=== PATIENT | female | born 1965 | race Caucasian/White ===

== ENCOUNTER 2020-03-24 10:13 | Outpatient (REF) | payer OTHER, SELFPAY | END 2020-03-24 10:14 | disposition home or self-care (01) | LOC: HO.LAB 10:13 | PROVIDERS: Visit Provider Internal Medicine | DX: Z20.828 Contact with and (suspected) exposure to other viral communicable diseases (principal) | CPT/HCPCS: C9803; U0003 ==

== ENCOUNTER 2024-07-09 13:59 | Outpatient (AMB) | payer OTHER, SELFPAY ==
--- NOTE | 2024-07-09 14:18 | A.OFFVIS_ITS ---
Vital Signs 07/09/24 14:19 Height 5 ft 4 in Weight 186 lb BMI 31.9 BP 116/76 Blood Pressure Location Lt brachial Position Sitting Pulse 107 H Pulse Source Pulse Oximeter Pulse Oximetry (%) 95 Oxygen Delivery Method Room Air Intake Visit Reasons: E-COUNTY AGENT: Dyspnea needs sleep study Intake Note: External New Patient- Dyspnea. Patient would also like us to send note to Division Service Manager Dr. Toledo Allergies adhesive tape Allergy (Mild, Verified 07/09/24 14:23) Hives naproxen Allergy (Mild, Verified 07/09/24 14:34) Diarrhea shellfish derived Allergy (Mild, Verified 07/09/24 14:34) Unknown Sulfa (Sulfonamide Antibiotics) Allergy (Mild, Verified 07/09/24 14:23) hives mold Allergy (Unknown, Verified 07/09/24 14:34) Unknown nut - unspecified Allergy (Unknown, Verified 07/09/24 14:34) Unknown HPI Comments Details: 58 year old female presents to us for sleep evaluation per PCP Betty Lezama at [facility]. She had a visit with her stars analytical lead Nayeli Toledo, and was told she has an enlarged Aorta. She had a complete Cardiology workup EKG, Echo, Holter monitor and it was within parameters. She had calcium score because of weight issues and her condition was discovered. Her father had a AK at 45. Her boyfriend says she snores loudly and she wakes up in the middle of the night and then watches tv throughout the night. Bedtime is 9pm, she wakes up at 4:30am, and is not able to fall asleep again. She has asthma, and allergies and her pulse is high at 107 today. She is followed by Rheumatology Dr. Jackson at [facility] for RA like swelling of small joints. Her memory and mood are normal. Her diet is poor, as she eats alot of fast food. She walks 3x a week for 20min intervals, hikes once a month 3-4 miles, and drinks plenty of water. She is not a smoker, and drinks 2 glasses of wine a night. [facility] Medical History COVID-19 Family history of premature coronary heart disease Family history of malignant melanoma Prediabetes GERD (gastroesophageal reflux disease) Asthma Allergic rhinitis Benign essential hypertension Obesity Goiter Review of Systems Const All systems reviewed & are unremarkable except as noted in HPI and below Physical Exam Vital Signs: Last Vital Signs Pulse 107 H 07/09/24 14:19 BP 116/76 07/09/24 14:19 Pulse Ox 95 07/09/24 14:19 Oxygen Delivery Method Room Air 07/09/24 14:19 BMI result Body Mass Index 31.9 Const General: cooperative, comfortable and no acute distress Nutritional Appearance: obese Orientation/consciousness: patient oriented x3 Eyes Pupils: Equal, round and reactive pupils present Neck Neck: Yes full ROM and Yes supple Resp Effort & Inspection: normal respiratory effort and able to speak in complete sentences Neuro General: patient oriented x3 and moves all extremities Cranial nerves: Yes CN's II-XII intact bilaterally, Yes Facial sensation intact/muscles of mastication intact, Yes Equal, round and reactive pupils present, Yes Normal accommodation reflex present, Yes Bilaterally intact EOM present, Yes Normal facial strength present, Yes Midline tongue present, Yes Ability to bilaterally rotate head present and Yes Ability to bilaterally elevate shoulders present Gait exam (Neuro): Normal gait present Motor exam (neuro): 5/5 motor strength present throughout and Normal motor muscle tone present throughout Deep tendon reflexes (DTR's): Right triceps reflex intensity grade: 2+, Left triceps reflex intensity grade: 2+, Rt Biceps (C5, C6): 2+, Left biceps reflex intensity grade: 2+, Left brachioradialis reflex intensity grade: 2+, Right patellar reflex intensity grade: 2+ and Left patellar reflex intensity grade: 2+ Results Reviewed Results Reviewed: Request Records from Nayeli Ruiz Division Service Manager Assessment & Plan Assessment & Plan (1) Fatigue due to sleep pattern disturbance: Code(s): R53.83 - Other fatigue; G47.9 - Sleep disorder, unspecified Category: Medical Plan Fatigue Labs to r/o deficiencies HST to evaluate for sleep apnea F/U in 3 months Orders: Orders Comprehensive Met. Panel Today G47.9 - Sleep disorder, unspecified, R53.83 - Other fatigue Ferritin Today G47.9 - Sleep disorder, unspecified, R53.83 - Other fatigue Homocysteine Today G47.9 - Sleep disorder, unspecified, R53.83 - Other fatigue Methylmalonic Acid Today G47.9 - Sleep disorder, unspecified, R53.83 - Other fatigue Vitamin B12 and Folate Today G47.9 - Sleep disorder, unspecified, R53.83 - Other fatigue RT home sleep study Today G47.19 - Other hypersomnia Complete Blood Count no Diff Today G47.9 - Sleep disorder, unspecified, R53.83 - Other fatigue Hemoglobin A1c Today G47.9 - Sleep disorder, unspecified, R53.83 - Other fatigue IRON PROFILE Today G47.9 - Sleep disorder, unspecified, R53.83 - Other fatigue TSH reflex Free T4 Today F09 - Unspecified mental disorder due to known physiological condition Vitamin D 25-OH Total Today G47.9 - Sleep disorder, unspecified, R53.83 - Other fatigue Patient Instructions: Sleep Hygiene Sleep in a dark and cool room, temperatures should be 68 or below. No devices in bed, may read a book. May diffuse essential oils and play soft calming music or do gentle yoga before bedtime. Coding Level of Care Code New Pt Level 4 (31944) Diagnoses Fatigue due to sleep pattern disturbance R53.83; G47.9 Time Spent (min) 30 Comment Evaluation Sleep Questionnaire Difficulty falling asleep: No Difficulty staying asleep?: Yes Number of arousals: 2-4 Snoring: Yes Witnessed apneas: No Gasping arousals: No Nocturia: No GERD: Yes Vivid dreams: No Acting out dreams: No Abnormal behavior in sleep: Yes (Sleep talking) Abnormal movements in sleep: No Morning headaches: No Excessive daytime sleepiness: Yes Daytime naps: No Restless legs: No Hallucinations: No Sleep paralysis: No Drop attacks: No Sleep Study: No CPAP: No
[2024-07-09 14:19] VITALS: BP 116/76; PULSE 107; O2SAT 95; BMI 31.9
== END 2024-07-09 15:02 | disposition home or self-care (01) ==
PROVIDERS: PCP Family Medicine; Visit Provider Physician Assistant Medical
DX: R53.83 Other fatigue (principal); G47.9 Sleep disorder, unspecified
CPT/HCPCS: 99204

== ENCOUNTER → 2024-07-09 13:59 | Outpatient (BNVA) | payer OTHER, SELFPAY | PROVIDERS: PCP Family Medicine; Visit Provider Physician Assistant Medical | DX: R53.83 Other fatigue (principal); G47.9 Sleep disorder, unspecified | CPT/HCPCS: 99202 ==

== ENCOUNTER → 2024-09-10 11:04 | Outpatient (REF) | payer OTHER, SELFPAY | LOC: HO.SL 11:04 | PROVIDERS: PCP Family Medicine; Visit Provider Physician Assistant Medical | DX: G47.19 Other hypersomnia (principal) | CPT/HCPCS: 95806 ==

== ENCOUNTER → 2024-09-10 11:13 | Outpatient (BNV) | payer OTHER, SELFPAY | PROVIDERS: PCP Family Medicine; Visit Provider Psychiatry & Neurology Neurology | DX: G47.33 Obstructive sleep apnea (adult) (pediatric) (principal) | CPT/HCPCS: 95806 ==

== ENCOUNTER 2024-10-06 09:32 | Outpatient (AMB) | payer OTHER, SELFPAY ==
--- NOTE | 2024-10-06 09:32 | MHC.OFFVIS ---
Vital Signs 10/06/24 09:33 Height 5 ft 4 in Weight 189 lb BMI 32.4 BP 122/88 Blood Pressure Location Rt brachial Position Sitting Pulse 104 H Pulse Source Pulse Oximeter Pulse Oximetry (%) 98 Oxygen Delivery Method Room Air Intake Visit Reasons: 3 mo follow up Intake Note: Patient presents follow up Sleep. Labs/HST in chart.(AHI-8,Supine AHI-19, BINTA-86%. Trial APAP 5-20CM water) Allergies adhesive tape Allergy (Mild, Verified 10/06/24 09:35) Hives naproxen Allergy (Mild, Verified 10/06/24 09:35) Diarrhea shellfish derived Allergy (Mild, Verified 10/06/24 09:35) Unknown Sulfa (Sulfonamide Antibiotics) Allergy (Mild, Verified 10/06/24 09:35) hives mold Allergy (Unknown, Verified 10/06/24 09:35) Unknown nut - unspecified Allergy (Unknown, Verified 10/06/24 09:35) Unknown HPI Comments Details: 59 year old female presents to us for sleep evaluation per PCP Betty Lezama at [facility]. 09/17/2024 HST is c/w mild derek AHI is 8 and oxygen binta to 86% with snoring. Zyzol, for allergies and Breo for asthma today she has an URI. She continues to be fatigued chronically and seems very anxious today. She had a visit with her plastic and reconstructive surgeon Nayeli Toledo, she was dx with an enlarged aorta, then she had a complete Cardiology workup, with EKG, Echo, and 2x Holter monitor, she had failed her PFTs at [facility] and is being followed by Pulmonology. We discussed pathophysiology of obesity, mallampti scores airway obstruction, GERD and relevance to DEREK. Her boyfriend says she snores loudly and she wakes up in the middle of the night, then watches tv throughout the night if she can not fall asleep, though she is sleeping better now denies hot flashes and mood irritability, less menopausal symptoms. Has been to weight loss management at [facility], plans to start wegovy or zepboud, undecided. Her memory is okay and mood is stable. Her diet is poor, as she eats a lot of fast food. Is not able to get into the gym at the moment. 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 Declines psychosocial support today. Her pulse is higher at the end of this visit (106). Patient education provided re: using cpap and cardio-protective, cognitive benefits of therapy vs. oral appliance use. [facility] Medical History COVID-19 Family history of premature coronary heart disease Family history of malignant melanoma Prediabetes GERD (gastroesophageal reflux disease) Asthma Allergic rhinitis Benign essential hypertension Obesity Goiter Physical Exam Vital Signs: Last Vital Signs Pulse 104 H 10/06/24 09:33 BP 122/88 10/06/24 09:33 Pulse Ox 98 10/06/24 09:33 Oxygen Delivery Method Room Air 10/06/24 09:33 BMI result Body Mass Index 32.4 Const General: cooperative, comfortable and no acute distress Nutritional Appearance: overweight Orientation/consciousness: patient oriented x3 HEENT Face and sinus: Yes face symmetric Teeth and gingiva: other (Mallampti score of 4.) Eyes Pupils: Equal, round and reactive pupils present Neck Neck: Yes full ROM Resp Effort & Inspection: normal respiratory effort, able to speak in complete sentences and Actively coughing Neuro General: patient oriented x3 and moves all extremities Cranial nerves: Yes Facial sensation intact/muscles of mastication intact, Yes Equal, round and reactive pupils present, Yes Normal accommodation reflex present, Yes Normal facial strength present, Yes Midline tongue present, Yes Ability to bilaterally rotate head present and Yes Ability to bilaterally elevate shoulders present Cognition (Neuro): normal cognition Gait exam (Neuro): Normal gait present Psych Appearance: grossly normal Affect: Anxious affect present Attitude: cooperative Thought content: Normal thought content present Results Reviewed Results Reviewed: 09/17/2024 HST c/w mild derek, AHI is 8/hr and oxygen nadirs to 86%, with snoring 25% of study. Assessment & Plan Assessment & Plan (1) DEREK (obstructive sleep apnea): Code(s): G47.33 - Obstructive sleep apnea (adult) (pediatric) Category: Medical (2) Loud snoring: Code(s): R06.83 - Snoring Category: Medical (3) Fatigue due to sleep pattern disturbance: Code(s): R53.83 - Other fatigue; G47.9 - Sleep disorder, unspecified Category: Medical Plan DEREK AHI is 8 and Oxygen Binta to 86%, with snoring. Start Cpap therapy at [id number] and f/u for compliance. Will reviewed labs patient, start daily vit d, b12 is normal, mma is low and homocysteine is high, folate normal. (inflammation) Monitor and Decrease alcohol use, increase walking and daily exercise 30 min a day, and with water intake. F/U in 3 months for compliance. Patient Instructions: Sleep Hygiene provided: set a scheduled bedtime and wake time to help regulate the circadian rhythm and balance the release of pituitary hormones. Sleep in a dark room, temperatures below 68 degrees, and no devices n bed. Limit caffeinated products 6 hours prior to bed, and limit fluids 2-4 hours prior to bed. Gentle night yoga, diffusing essential oils, and playing soft music can be relaxing. Wash mask daily, change filters, change hoses and fill reservoir with water as needed. F/U in 3 months for compliance >4 hours a night at a minimum and >70% for the 90 days period. Alcohol use taper use and ask for help if you need a therpist please reach out to [facility] or behavioral health at [facility]. Coding Level of Care Code Est Pt Level 4 (58904) Diagnoses DEREK (obstructive sleep apnea) G47.33 Loud snoring R06.83 Fatigue due to sleep pattern disturbance R53.83; G47.9 Time Spent (min) 30 Comment start cpap therapy
[2024-10-06 09:33] VITALS: BP 122/88; PULSE 104; O2SAT 98; BMI 32.4
== END 2024-10-06 10:24 | disposition home or self-care (01) ==
LOC: HO.HSMS 09:32
PROVIDERS: PCP Family Medicine; Visit Provider Physician Assistant Medical
DX: G47.33 Obstructive sleep apnea (adult) (pediatric) (principal); R06.83 Snoring; R53.83 Other fatigue; G47.9 Sleep disorder, unspecified
CPT/HCPCS: 99214

== ENCOUNTER → 2024-10-06 09:32 | Outpatient (BNVA) | payer OTHER, SELFPAY | PROVIDERS: PCP Family Medicine; Visit Provider Physician Assistant Medical | DX: G47.33 Obstructive sleep apnea (adult) (pediatric) (principal); G47.9 Sleep disorder, unspecified; R06.83 Snoring; R53.83 Other fatigue | CPT/HCPCS: 99212 ==

== ENCOUNTER 2025-01-26 10:28 | Outpatient (AMB) | payer OTHER, SELFPAY ==
[2025-01-26 10:32] VITALS: BP 124/86; PULSE 103; O2SAT 96; BMI 31.7
--- NOTE | 2025-01-26 10:32 | MHC.OFFVIS ---
Vital Signs 01/26/25 10:32 Height 5 ft 4 in Weight 184 lb 8 oz BMI 31.7 BP 124/86 Blood Pressure Location Rt brachial Position Sitting Pulse 103 H Pulse Source Pulse Oximeter Pulse Oximetry (%) 96 Oxygen Delivery Method Room Air Intake Visit Reasons: 3 mo follow up Intake Note: Patient presents follow up DEREK. Compliance in chart(06/05days, >=4hrs-0%, Average Usage-10min, Med Pressure-4.0, Med Leaks-10.8, AHI-0.0). Patient stated she can not do CPAP. Patient looking to see about zepbound. Accompanied by: Self / Same As Patient Allergies adhesive tape Allergy (Mild, Verified 01/26/25 10:36) Hives naproxen Allergy (Mild, Verified 01/26/25 10:36) Diarrhea shellfish derived Allergy (Mild, Verified 01/26/25 10:36) Unknown Sulfa (Sulfonamide Antibiotics) Allergy (Mild, Verified 01/26/25 10:36) hives mold Allergy (Unknown, Verified 01/26/25 10:36) Unknown nut - unspecified Allergy (Unknown, Verified 01/26/25 10:36) Unknown HPI Comments Details: 59 year old female presents for a f/u of DEREK. 09/17/2024 HST is c/w mild derek AHI is 8 and oxygen binta to 86% with snoring. She has asthma and allergies takes Zyzol, for allergies and Breo for asthma today she has an URI and will f/u with financial advisor trainee and mechanical research engineer at an upcoming appt. She continues to be fatigued chronically and feels panicked when she puts the mask on. she feels clautrophobic and pulls her mask off as she is unable to tolerate the mask and her panic attacks worsen. She had a visit with her insole coverer Nayeli Toledo, she was dx with an enlarged aorta, then she had a complete cardiology workup, with EKG, Echo, and 2x Holter monitor, she had failed her PFTs at [facility]. We discussed pathophysiology of obesity, mallampti scores airway obstruction, GERD and relevance to DEREK. She would like to start zepbound. Her boyfriend says she snores loudly and she wakes up in the middle of the night, then watches tv throughout the night. She has vasomotor symptoms and is uncomfortable at night. Has been to weight loss management with Chhaya Hossein. Her memory is okay and mood is stable. Her diet is poor, as she eats a lot of fast food. Is not able to get into the gym at the moment. 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 Declines psychosocial support today. Her pulse is higher at the end of this visit (106). Patient education provided re: using cpap as it is the gold standard approach to treating sleep apena with positive airway pressure and the benefits of cognitive improvement. Explained how an oral appliance could also be beneficial, however cpap use is the preferred treatment of choice. [facility] Medical History COVID-19 Family history of premature coronary heart disease Family history of malignant melanoma Prediabetes GERD (gastroesophageal reflux disease) Asthma Allergic rhinitis Benign essential hypertension Obesity Goiter Physical Exam Vital Signs: Last Vital Signs Pulse 103 H 01/26/25 10:32 BP 124/86 01/26/25 10:32 Pulse Ox 96 01/26/25 10:32 Oxygen Delivery Method Room Air 01/26/25 10:32 BMI result Body Mass Index 31.7 Const General: cooperative, comfortable and no acute distress Nutritional Appearance: overweight Orientation/consciousness: patient oriented x3 HEENT Face and sinus: Yes face symmetric Teeth and gingiva: other (Mallampti score of 4.) Eyes Pupils: Equal, round and reactive pupils present Neck Neck: Yes full ROM Resp Effort & Inspection: normal respiratory effort, able to speak in complete sentences and Actively coughing Neuro General: patient oriented x3 and moves all extremities Cranial nerves: Yes Facial sensation intact/muscles of mastication intact, Yes Equal, round and reactive pupils present, Yes Normal accommodation reflex present, Yes Normal facial strength present, Yes Midline tongue present, Yes Ability to bilaterally rotate head present and Yes Ability to bilaterally elevate shoulders present Cognition (Neuro): normal cognition Gait exam (Neuro): Normal gait present Psych Appearance: grossly normal Affect: Anxious affect present Attitude: cooperative Thought content: Normal thought content present Assessment & Plan Assessment & Plan (1) DEREK (obstructive sleep apnea): Code(s): G47.33 - Obstructive sleep apnea (adult) (pediatric) Category: Medical (2) Loud snoring: Code(s): R06.83 - Snoring Category: Medical (3) Fatigue due to sleep pattern disturbance: Code(s): R53.83 - Other fatigue; G47.9 - Sleep disorder, unspecified Category: Medical Plan DEREK AHI is 8 and Oxygen Binta to 86%, with snoring. Start Cpap therapy at [id number] and f/u for compliance. Pt. declines use of cpap today, she is claustrophobic, asthmatic, and unable to tolerate the mask. Fatigue reviewed labs patient, start daily vit d, b12 is normal, mma is low and homocysteine is high, folate normal. (inflammation) Monitor and Decrease alcohol use, increase walking and daily exercise 30 min a day, increase water intake. ENT referral for polyps. [facility] referral Sleep dentistry referral for oral appliance evaluation. F/U in 3 months for compliance. Orders: Referrals Ear/Nose/Throat Referral G47.30 - Sleep apnea, unspecified Medical Weight Management Referral E66.01 - Morbid (severe) obesity due to excess calories Medications: Refilled cholecalciferol (vitamin D3) take one tablet daily at bedtime. 10 mcg PO DAILY 90 tabs 3RF 90 days Patient Instructions: Sleep Hygiene provided: set a scheduled bedtime and wake time to help regulate the circadian rhythm and balance the release of pituitary hormones. Sleep in a dark room, temperatures below 68 degrees, and no devices n bed. Limit caffeinated products 6 hours prior to bed, and limit fluids 2-4 hours prior to bed. Gentle night yoga, diffusing essential oils, and playing soft music can be relaxing. Coding Level of Care Code Est Pt Level 4 (40638) Diagnoses DEREK (obstructive sleep apnea) G47.33 Loud snoring R06.83 Fatigue due to sleep pattern disturbance R53.83; G47.9
--- OUTSIDE RECORDS SUMMARY | 2025-01-26 12:44 | XMS_ITS | Encounter Summary ---
Author Organization [facility] Address [address] [place] [address] Phone Care Team Providers Care Pathology Assistant Name Role Phone Da Licea MD Primary Care Prov ider Da Licea MD Primary Care Prov ider Encounter Details Date Type Department Care Team (Late st Contact Info) Description 07/23/2018 Procedure Pass [facility] Endoscopy Admitting Dept Virtual Department [address] [place] [id number] Social History Tobacco Use Types Packs/Day Years Used Date Smoking Tobacco: Never Smokeless Tobacco: Never Alcohol Use Standard Drinks/Week Comments Yes 7 (1 standard drink = 0.6 oz pur e alcohol) weekly Comments No Sex and Gender Information Value Date Recorded Sex Assigned at Female 11/23/2022 12:29 PM EDT Legal Sex Female 6:38 AM EST Gender Identity Female 11/23/2022 12:29 PM EDT Sexual Orientation Not on file documented as of this encounter Plan of Treatment Upcoming Encounters Date Type Department Care Team (Late st Contact Info) Description 02/09/2025 11:20 AM EDT Office Visit [facility] [address] [place] [address] 3rd Floor, [address] [place] [address] Jair Mercer MD [address] [facility] [facility], [address] [place] [address] 02/18/2025 10:30 AM EDT Nutrition [facility] General Surgical Care [address] [place] [address] Bri Wheeler LDN [address] [place] [address] 03/24/2025 10:15 AM EST Office Visit [facility] General Surgical Care [address] [place] [address] Chhaya Espana, INVASIVE CARDIOVASCULAR TECHNOLOGIST [address], 2nd [place] [address] 03/30/2025 3:00 PM EST Office Visit [facility] Pulmonary, Allergy and Critical Care Medicine [address] [place] [address] Luis Moore MD [address] [place] [address] 03/31/2025 2:00 PM EST Office Visit [facility] [address] [facility] 3rd Floor, [address] [place] [address] Jeyson Fagan MD [address], [address] [place] [address] 06/09/2025 9:10 AM EST Office Visit [facility] Rheumatology [address] [place] [address] Nury Jackson MD, MPH [address], [address] [place] [address] documented as of this encounter Visit Diagnoses Not on filedocumented in this encounter Additional Health Concerns Infection Onset Date Last Indicated Resolved Time CoV-Risk 04/12/2020 04/12/2020 04/26/2020 2:06 AM EST CoV-Risk 03/06/2022 03/06/2022 03/17/2022 1:24 AM EST documented as of this encounter Care Teams Pathology Assistant Relationship Specialty Start Date End Date Da Licea MD [email or web address] PCP - General Family Medicine 04/20/17 4 Da Licea MD [address] [place] [id number] [email or web address] PCP - General Family Medicine 05/22/23 documented as of this encounter Additional Source Comments The information contained in this document represents components of the legal health record. It is not the complete legal health record.[facility]
--- OUTSIDE RECORDS SUMMARY | 2025-01-26 12:44 | XMS_ITS | Encounter Summary ---
Author Organization [facility] Address [address] [place] [address] Phone Care Team Providers Care Project Safety Manager Name Role Phone Da Licea MD Primary Care Prov ider Da Licea MD Primary Care Prov ider Encounter Details Date Type Department Care Team (Late st Contact Info) Description 02/11/2020 Procedure Pass [facility], [address] [address] Social History Tobacco Use Types Packs/Day Years Used Date Smoking Tobacco: Never Smokeless Tobacco: Never Alcohol Use Standard Drinks/Week Comments Yes 0 (1 standard drink = 0.6 oz pur e alcohol) 2-3 daily Comments No Sex and Gender Information Value Date Recorded Sex Assigned at Female 11/23/2022 12:29 PM EDT Legal Sex Female 6:38 AM EST Gender Identity Female 11/23/2022 12:29 PM EDT Sexual Orientation Not on file documented as of this encounter Plan of Treatment Upcoming Encounters Date Type Department Care Team (Late st Contact Info) Description 02/09/2025 11:20 AM EDT Office Visit [facility] [address] [place] [address] 3rd Floor, [address] [place] [address] Jair Mercer MD [address] [facility], [address] [place] [phone] 02/18/2025 10:30 AM EDT Nutrition [facility] General Surgical Care [address] [place] [address] Bri Wheeler LDN [address] [place] [address] 03/24/2025 10:15 AM EST Office Visit [facility] General Surgical Care [address] [place] [address] Chhaya Espana, MANAGER ELECTRICAL [address] [facility], 2nd [place] [address] 03/30/2025 3:00 PM EST Office Visit [facility] Pulmonary, Allergy and Critical Care Medicine [address] [place] [address] Luis Moore MD [address] [place] [address] 03/31/2025 2:00 PM EST Office Visit [facility] [address] [facility] 3rd Floor, [address] [place] [address] Jeyson Fagan MD [address] [facility], [facility] [address] [place] [address] 06/09/2025 9:10 AM EST Office Visit [facility] Rheumatology [address] [place] [address] Nury Jackson MD, MPH [address] [facility], [address] [place] [address] documented as of this encounter Visit Diagnoses Not on filedocumented in this encounter Additional Health Concerns Infection Onset Date Last Indicated Resolved Time CoV-Risk 04/12/2020 04/12/2020 04/26/2020 2:06 AM EST CoV-Risk 03/06/2022 03/06/202203/1703/17/2022 1:24 AM EST documented as of this encounter Care Teams Project Safety Manager Relationship Specialty Start Date End Date Da Licea MD PCP - General Family Medicine 04/20/17 4 Da Licea MD [address] [place] [phone] [email or web address] PCP - General Family Medicine 05/22/23 documented as of this encounter Additional Source Comments The information contained in this document represents components of the legal health record. It is not the complete legal health record.[facility]
--- OUTSIDE RECORDS SUMMARY | 2025-01-26 12:44 | XMS_ITS | Encounter Summary ---
Author Organization [facility] Address [address] [place] [address] Phone Care Team Providers Care Wastewater Operator Name Role Phone Da Licea MD Primary Care Prov ider Da Licea MD Primary Care Prov ider Encounter Details Date Type Department Care Team (Late st Contact Info) Description 04/02/2020 Transcribe Orders [facility] [address] [place] [phone] Angela Ruelas MD [address] [place], [place] [phone] [email or web address] Stomach ache (Primary Dx) Social History Tobacco Use Types Packs/Day Years [...] Description 02/09/2025 11:20 AM EDT Office Visit [facility] [address] [place] [address] 3rd Floor, [address] [place], [place] [id number] Jair Mercer MD [address] [facility], [address] [place] [address] 02/18/2025 10:30 AM EDT Nutrition [facility] General Surgical Care [address] [place] [address] Bri Wheeler LDN [address] [place] [place] [address] 03/24/2025 10:15 AM EST Office Visit [facility] General Surgical Care [address] [place] [address] Chhaya Espana, WHEEL CUTTER [address] [facility], 2nd [place] [address] 03/30/2025 3:00 PM EST Office Visit [facility] Pulmonary, Allergy and Critical Care Medicine 10 [place] [address] Luis Moore MD 30 [place] [address] 03/31/2025 2:00 PM EST Office Visit [facility] [address] [facility] 3rd Floor, [address] [place] [address] Jeyson Fagan MD 22 [facility], [facility] 301 [place] [address] 06/09/2025 9:10 AM EST Office Visit [facility] Rheumatology [address] [place] [address] Nury Jackson MD, MPH [address] [facility], [facility] 203 [place] [address] documented as of this encounter Results * CBC and differential (04/02/2020 11:49 AM EST) WBC 9.61 4.00 - 11.00 K/uL [facility] Comment:Note Reference Range updates to all CBC and Differential results. RBC 4.69 3.72 - 5.30 M/uL [facility] HGB 14.1 10.6 - 15.5 g/dL [facility] Comment:Note updated Referen ce Ranges for all CBC and Differential results. HCT 42.6 32.0 - 45.0 % [facility] PLT 276 140 - 430 K/uL [facility] MCV 90.8 78.0 - 97.0 fL [facility] MCH 30.1 25.0 - 33.0 pg [facility] MCHC 33.1 32.0 - 36.0 g/dL [facility] RDW 12.2 11.0 - 16.0 % [facility] MPV 12.2 8.4 - 12.8 fl [facility] NRBC 0.00 0 /100 WBCs [facility] ABSOLUTE NRBC 0.00 0 K/uL [facility] DIFF METHOD Auto [facility] NEUTS 70.0 43.0 - 75.0 % [facility] LYMPHS 21.7 18.2 - 47.4 % [facility] MONOS 5.7 4.00 - 11.00 % [facility] EOS 1.7 0.0 - 8.0 % [facility] BASOS 0.6 0.0 - 2.0 % [facility] Granulocytes, immature (%) 0.3 0.0 - 0.9 % [facility] ABSOLUTE NEUTS 6.72 1.80 - 7.70 K/uL [facility] ABSOLUTE LYMPHS 2.09 1.00 - 3.10 K/uL [facility] ABSOLUTE MONOS 0.55 0.20 - 0.80 K/uL [facility] ABSOLUTE EOS 0.16 0.00 - 0.80 K/uL [facility] ABSOLUTE BASOS 0.06 0.00 - 0.09 K/uL [facility] Granulocytes, immature 0.03 0.00 - 0.05 K/uL [facility] Blood 04/02/2020 11:4 9 AM EST 04/02/2020 12:04 PM EST us Angela Ruelas MD LAB BLOOD ORDERABLES Final Result [address] [address] * Comprehensive metabolic panel (04/02/2020 11:49 AM EST) SODIUM 138 133 - 146 mmol/L [facility] POTASSIUM 4.2 3.3 - 5.1 mmol/L [facility] CHLORIDE 102 96 - 108 mmol/L [facility] CO2 25 21 - 35 mmol/L [facility] BUN 12 6 - 19 mg/dL [facility] CREATININE 0.80 0.5 - 1.5 mg/dL [facility] GLUCOSE 91 70 - 99 mg/dL [facility] ALBUMIN 4.3 3.9 - 4.8 g/dL [facility] TOTAL PROTEIN 7.0 6.5 - 8.0 g/dL [facility] CALCIUM 9.3 8.4 - 10.3 mg/dL [facility] ALKALINE PHOSPHATASE 70 39 - 117 U/L [facility] TOTAL BILIRUBIN 0.4 0.0 - 1.2 mg/dL [facility] AST 29 0 - 37 U/L [facility] ALT 14 0 - 40 U/L [facility] GLOBULIN 2.7 1 - 4.8 g/dL [facility] EGFR 85 >59 mL/min/1.7 3m2 [facility] Comment:Estimated glomerular filtration rate calculated using the CKD-EPI equation. ANION GAP 15 10 - 20 mmol/L [facility] Blood 04/02/2020 11:4 9 AM EST 04/02/2020 12:04 PM EST us Angela Ruelas MD LAB BLOOD ORDERABLES Final Result Performing Organization Address City/[facility]/ZIP Co de Phone Number [address] [address] * Hepatitis C antibody, qualitative (04/02/2020 11:49 AM EST) HCV NON-REACTIV E NON-REACTI VE [facility] Blood 04/02/2020 11:4 9 AM EST 04/02/2020 12:04 PM EST us Angela Ruelas MD LAB BLOOD ORDERABLES Final Result Performing Organization Address [facility] Co de Phone Number [address] [address] * Lipase (04/02/2020 11:49 AM EST) LIPASE 42 16 - 63 U/L [facility] Blood 04/02/2020 11:4 9 AM EST 04/02/2020 12:04 PM EST us Angela Ruelas MD LAB BLOOD ORDERABLES Final Result Performing Organization Address [facility] de Phone Number [address] [address] documented in this encounter Visit Diagnoses Diagnosis Stomach ache- Primary Dyspepsia and other specified disorders of function of stomach documented in this encounter Additional Health Concerns Infection Onset Date Last Indicated Resolved Time CoV-Risk 04/12/2020 04/12/2020 04/26/2020 2:06 AM EST CoV-Risk 03/06/2022 03/06/2022 03/17/2022 1:24 AM EST documented as of this encounter Care Teams Wastewater Operator Relationship Specialty Start Date End Date Da Licea MD PCP - General Family Medicine 04/20/17 4 Da Licea MD [address] [place] [address] PCP - General Family Medicine 05/22/23 documented as of this encounter Additional Source Comments The information contained in this document represents components of the legal health record. It is not the complete legal health record.[facility]
--- OUTSIDE RECORDS SUMMARY | 2025-01-26 12:44 | XMS_ITS | Encounter Summary ---
Author Organization [facility] Address [address] [facility] [address] [place] [address] Phone Care Team Providers Care Construction Flagger Name Role Phone Da Licea MD Primary Care Prov ider Da Licea MD Primary Care Prov ider Encounter Details Date Type Department Care Team (Late st Contact Info) Description 05/02/2019 Ancillary Orders Virtual Department [address] [place] [address] Da Licea MD [address] [place] [address] [email or web address] Breast screening Social History Tobacco Use Types Packs/Day Years [...] Description 02/09/2025 11:20 AM EDT Office Visit [facility] [address] [place] [address] 3rd Floor, [address] [place] [address] Jair Mercer MD [address] [facility] [address] [place] [address] 02/18/2025 10:30 AM EDT Nutrition [facility] General Surgical Care 15 [place] [address] Bri Wheeler LDN [address] [place] [place] [address] 03/24/2025 10:15 AM EST Office Visit [facility] General Surgical Care 15 [place] [address] Chhaya Espana, ENROLLMENT SERVICES DEAN [address] [facility], 2nd [place] [address] 03/30/2025 3:00 PM EST Office Visit [facility] Pulmonary, Allergy and Critical Care Medicine 10 [place] [address] Luis Moore MD 30 [place] [address] 03/31/2025 2:00 PM EST Office Visit [facility] [address] [facility] 3rd Floor, [address] [place] [address] Jeyson Fagan MD [address] [place] [address], [address] [address] 06/09/2025 9:10 AM EST Office Visit [facility] Rheumatology 22 [place] [address] Nury Jackson MD, MPH [address] [facility], [address] [place] [phone] documented as of this encounter Results * BI MAMMOGRAM SCREENING WITH TOMOSYNTHESIS WITH CAD (BILATERAL) (02/11/2020 1:16 PM EDT) Anatomical Region Laterality Modality Breast Left, Breast Right, Breast Bilateral Bila teral Mammography 02/11/2020 1:48 PM EDT Impressions 02/11/2020 1:50 PM EDT No mammographic evidence of malignancy. Recommend routine annual surveillance. BI-RADS CATEGORY 2 - BENIGN DENSITY: The breast tissue is heterogeneously dense, an appearance which lowers the sensitivity of mammography. Narrative 02/11/2020 1:50 PM EDT 54-year-old female with no current breast symptoms. Comparison made to previous on 06/18/2018 and as far back as 03/18/2013. Interpretation made in conjunction with computer-aided detection and tomosynthesis. The breasts are heterogeneously dense, which may obscure small masses. Stable bilateral nodularity and punctate microcalcifications. There are no suspicious masses, areas of architectural distortion, or suspicious clusters of microcalcifications. Da Wisdom MD IMG MG EXAMS Fi nal Result documented in this encounter Visit Diagnoses Diagnosis Breast screening Breast screening, unspecified Breast screening Breast screening, unspecified documented in this encounter Additional Health Concerns Infection Onset Date Last Indicated Resolved Time CoV-Risk 04/12/2020 04/12/2020 04/26/2020 2:06 AM EST CoV-Risk 03/06/2022 03/06/2022 03/17/2022 1:24 AM EST documented as of this encounter Care Teams Construction Flagger Relationship Specialty Start Date End Date Da Licea MD [email or web address] PCP - General Family Medicine 04/20/17 4 Da Licea MD [address] [place] [address] [email or web address] PCP - General Family Medicine 05/22/23 documented as of this encounter Additional Source Comments The information contained in this document represents components of the legal health record. It is not the complete legal health record.[facility]
--- OUTSIDE RECORDS SUMMARY | 2025-01-26 12:45 | XMS_ITS | Encounter Summary ---
Author Organization [facility] Address [address] [facility] [address] [place] [address] Phone Care Team Providers Care Training Representative Name Role Phone Da Licea MD Primary Care Prov ider Da Licea MD Primary Care Prov ider Encounter Details Date Type Department Care Team (Late st Contact Info) Description 06/05/2017 Ancillary Orders Virtual Department [address] [place] [address] Da Licea MD [address] [place] [phone] [email or web address] Breast screening Social History Tobacco Use Types Packs/Day Years Used Date Smoking Tobacco: Never Assessed Comments Unknown Sex and Gender Information Value Date Recorded Sex Assigned at Female 11/23/2022 12:29 PM EDT Legal Sex Female 6:38 AM EST Gender Identity Female 11/23/2022 12:29 PM EDT Sexual Orientation Not on file documented as of this encounter Plan of Treatment Upcoming Encounters Date Type Department Care Team (Late st Contact Info) Description 02/09/2025 11:20 AM EDT Office Visit [facility] [address] [place] [address] 3rd Floor, [address] [place] [address] Jair Mercer MD [address] [facility], [address] [place] [address] 02/18/2025 10:30 AM EDT Nutrition [facility] General Surgical Care 15 [place] [address] Bri Wheeler LDN [address] [place] [address] 03/24/2025 10:15 AM EST Office Visit [facility] General Surgical Care 15 [place] [address] Chhaya Espana, CONSULTING MARINE ENGINEER [address] [facility], 2nd [place] [address] 03/30/2025 3:00 PM EST Office Visit [facility] Pulmonary, Allergy and Critical Care Medicine 10 [place] [address] Luis Moore MD 30 [place] [address] 03/31/2025 2:00 PM EST Office Visit [facility] 22 [facility] 3rd Floor, [address] [place] [address] Jeyson Fagan MD 22 [facility], [facility] 301 [place] [address] 06/09/2025 9:10 AM EST Office Visit [facility] Rheumatology 22 [place] [address] Nury Jackson MD, MPH [address] [facility], [address] [place] [address] documented as of this encounter Results * BI MAMMOGRAM SCREENING WITH TOMOSYNTHESIS WITH CAD (BILATERAL) (06/18/2018 11:02 AM EST) Anatomical Region Laterality Modality Breast Left, Breast Right, Breast Bilateral Bila teral Mammography 06/18/2018 12:3 8 PM EST Impressions 06/18/2018 12:40 PM EST Stable appearance relative to prior imaging. No findings suggestive of malignancy are seen. BI-RADS CATEGORY: 2 - Benign finding. DENSITY: The breast tissue is heterogeneously dense, an appearance which lowers the sensitivity of mammography. POS - [id number] Narrative 06/18/2018 12:40 PM EST Full-field digital mammography is obtained with computer-aided detection. Comparison with prior imaging from 06/05/2017 is made with older imaging dating back as far as 02/29/2012 also reviewed. There is heterogeneous fibroglandular density evident in the breasts. In addition to 2-D C view imaging, tomosynthesis images are obtained in two projections of each breast. There are minor bilateral scattered punctate calcifications which are unchanged.. No dominant soft tissue mass of concern, suspicious cluster of calcifications, significant interval skin changes, or architectural distortion is identified. Procedure Note Tyson Barraza MD - 06/18/2018 Full-field digital mammography is obtained with computer-aided detection.Comparison with prior imaging from 06/05/2017 is made with older imagingdating back as far as 02/29/2012 also reviewed. There is heterogeneous fibroglandular density evident in the breasts. Inaddition to 2-D C view imaging, tomosynthesis images are obtained in twoprojections of each breast. There are minor bilateral scattered punctate calcifications which areunchanged.. No dominant soft tissue mass of concern, suspicious clusterof calcifications, significant interval skin changes, or architecturaldistortion is identified. IMPRESSION: Stable appearance relative to prior imaging. No findings suggestive ofmalignancy are seen. BI-RADS CATEGORY: 2 - Benign finding. DENSITY: The breast tissue is heterogeneously dense, an appearance whichlowers the sensitivity of mammography. POS - [id number] Da Wisdom MD IM MG EXAMS Fi nal Result documented in this encounter Visit Diagnoses Diagnosis Breast screening Breast screening, unspecified Breast screening Breast screening, unspecified documented in this encounter Additional Health Concerns Infection Onset Date Last Indicated Resolved Time CoV-Risk 04/12/2020 04/12/2020 04/26/2020 2:06 AM EST CoV-Risk 03/06/2022 03/06/2022 03/17/2022 1:24 AM EST documented as of this encounter Care Teams Training Representative Relationship Specialty Start Date End Date Da Licea MD PCP - General Family Medicine 04/20/17 4 Da Licea MD [address] [place] [address] [email or web address] PCP - General Family Medicine 05/22/23 documented as of this encounter Additional Source Comments The information contained in this document represents components of the legal health record. It is not the complete legal health record.[facility]
--- OUTSIDE RECORDS SUMMARY | 2025-01-26 12:45 | XMS_ITS | Encounter Summary ---
Author Organization [facility] Address [address] [facility] [address] [place] [address] Phone Care Team Providers Care Short Haul Driver Name Role Phone Da Licea MD Primary Care Prov ider Encounter Details Date Type Department Care Team (Late st Contact Info) Description 08/21/2024 Procedure Pass Non-Invasive Cardiology 30 [place] [address] Social History Tobacco Use Types Packs/Day Years Used Date Smoking Tobacco: Never Smokeless Tobacco: Never Alcohol Use Standard Drinks/Week Comments Yes 0 (1 standard drink = 0.6 oz pur e alcohol) 2-3 daily Education Answer Date Recorded Are you interested in more education? Not on pat e 09/01/2022 Are you concerned about learning? Not on file 09/01/2022 No 09/01/2022 No 09/01/2022 Digital Access Answer Date Recorded No 09/27/2022 No 09/27/2022 Reliable internet access at home? Not on file 09/27/2022 Device with a working camera? Not on file Intimate Partner Violence Answer Date R ecorded Are you denied basic needs s uch as food, clothing, or medical care? No 11/23/2022 In the past 12 months have y ou been in a relationship with a person who hurts, threatens, or tries to control you? No 11/23/2022 Are you denied basic needs s uch as food, clothing, or medical care? No 11/23/2022 In the past 12 months have y ou been in a relationship with a person who hurts, threatens, or tries to control you? No 11/23/2022 Comments No Sex and Gender Information Value Date Recorded Sex Assigned at Female 11/23/2022 12:29 PM EDT Legal Sex Female 6:38 AM EST Gender Identity Female 11/23/2022 12:29 PM EDT Sexual Orientation Not on file documented as of this encounter Plan of Treatment Upcoming Encounters Date Type Department Care Team (Late st Contact Info) Description 02/09/2025 11:20 AM EDT Office Visit [facility] [address] [facility] 3rd Floor, [address] [place] [address] Jair Mercer MD 22 [facility], [address] [address] 02/18/2025 10:30 AM EDT Nutrition [facility] General Surgical Care 15 [place] [address] Bri Wheeler LDN 15 [facility] [place]. [address] [place] [address] 03/24/2025 10:15 AM EST Office Visit [facility] General Surgical Care 15 [place] [address] Chhaya Espana, FLOOR WORKER [address] [facility], 2nd [place] [address] 03/30/2025 3:00 PM EST Office Visit [facility] Pulmonary, Allergy and Critical Care Medicine 10 [facility] [place] [address] [place] [address] Luis Moore MD 30 [place] [address] 03/31/2025 2:00 PM EST Office Visit [facility] [address] [facility] 3rd Floor, [address] [place] [address] Jeyson Fagan MD 22 [facility], [address] [place] [address] [email or web address] 06/09/2025 9:10 AM EST Office Visit [facility] Rheumatology 22 [place] [address] Nury Jackson MD, MPH [address] [facility], [address] [place] [address] [email or web address] documented as of this encounter Visit Diagnoses Not on filedocumented in this encounter Care Teams Short Haul Driver Relationship Specialty Start Date End Date Da Licea MD [address] [place] [phone] [email or web address] PCP - General Family Medicine 05/22/23 documented as of this encounter Additional Source Comments The information contained in this document represents components of the legal health record. It is not the complete legal health record.[facility]
--- OUTSIDE RECORDS SUMMARY | 2025-01-26 12:45 | XMS_ITS | Encounter Summary ---
Author Organization [facility] Address [address] [place] [address] Phone Care Team Providers Care Solar Sales Representative And Assessor Name Role Phone Da Licea MD Primary Care Prov ider Reason for Referral * Outpatient Procedure - Closed Specialty Diagnoses / Procedures Referred By Contkiersten t Referred To Contact Radiology Diagnoses Thoracic aortic aneurysm without rupture, unspecified part Procedures Adult Echo TTE Akash Vázquez MD [address] [place] [address] Phone: tel: fax: [email or web address] Referral ID Status Reason Start Date Expiration Date Visits Re quested Visits Authorized [id number] Closed 06/03/2024 06/03/2025 1 1 Encounter Details Date Type Department Care Team (Late st Contact Info) Description 06/03/2024 Transcribe Orders Virtual Department 30 [place] [address] Akash Vázquez MD [address] [place] [phone] [email or web address] Thoracic aortic aneurysm without rupture, unspecified part (Primary Dx) Social History Tobacco Use Types [...] Description 02/09/2025 11:20 AM EDT Office Visit [facility] [address], [address] [place] [address] Jair Mercer MD [address] [facility], [address] [address] [email or web address] 02/18/2025 10:30 AM EDT Nutrition [facility] General Surgical Care [address] [place] [address] Bri Wheeler LDN [address] [place] [place] [address] 03/24/2025 10:15 AM EST Office Visit [facility] General Surgical Care 15 [place] [address] Chhaya Espana, ICT CUSTOMER SUPPORT OFFICER [address] [facility], 2nd [place] [address] 03/30/2025 3:00 PM EST Office Visit [facility] Pulmonary, Allergy and Critical Care Medicine 10 [facility] [place] [address] [place] [address] Luis Moore MD 30 [place] [address] 03/31/2025 2:00 PM EST Office Visit [facility] 22 [facility] 3rd Floor, [address] [place] [address] Jeyson Fagan MD [address] [facility], [address] [place] [address] 06/09/2025 9:10 AM EST Office Visit [facility] Rheumatology 22 [place] [address] Nury Jackson MD, MPH [address] [facility], [address] [place] [address] [email or web address] documented as of this encounter Results * TTE COMPREHENSIVE (06/12/2024 9:57 AM EST) Body Surface Area 1.90 m2 Height 160 cm Weight 87 kg Systolic BP 128 mmHg Diastolic BP 80 mmHg Interventricular Septum Thickness 11 6 - 11 mm Left Ventricle Internal Diameter End Diastole 46 37 - 52 mm Left Ventricle Internal Diameter End Systole 30 <35 mm Left Ventricular Outflow Tract Diameter 19.0 mm LVOT VTI REST 247.0 mm Left Ventricular Outflow Tract Velocity 1.2 m/s Left Ventricular Outflow Tract Gradient at Rest 6 mmHg Left Ventricular Posterior Wall Thickness 8 6 - 11 mm Ejection Fraction 65 50 - 75 Percent Left Atrium Dimension Anterior-Posterior 33 15 - 40 mm Aortic Valve Mean Gradient 4 mmHg Aortic Valve Time Velocity Integral 268.0 mm Aortic Valve Peak Velocity 134.0 cm/s Aortic Valve Peak Gradient 7 mmHg Aortic Sinus Diameter 28 <40 mm Ascending Aorta Diameter 34 <36 mm Inferior Vena Cava Diameter 17 <21 mm Mitral Valve A Wave Speed 87.5 cm/s Mitral Valve E Wave Speed 94.1 cm/s Right Ventricle Basal Diameter 27 25 - 41 mm Raw LV EF% 57 % Relative Wall Thickness 0.35 0.22 - 0.42 Aortic Valve Prosthetic Peak Gradient 7 mmHg Aortic Valve Sinus Index by BSA 15 mm/m2 Aorta Sinus Index by Height 1.75 cm/m Aorta Sinus CSA index by Height 3.85 cm2/m Ascending Aorta Index 18 mm/m2 Asc Aorta CSA Index by Height 5.67 cm2/m Ascending Aorta Index 18 mm Aortic Sinus Index 15 mm Ascending Aorta Diameter 18 mm Aortic Valve Sinus Index 1 15 19 - 27 mm AO ASC DIAM BSA INDEX 17.89 Aortic Valve Prosthetic Mean Gradient 4 mmHg Left Atrial Volume Index 25 16 - 34 mL/m2 Left Ventricle Ea Lateral Wave Speed 11.7 cm/s Right Ventricle TAPSE 26 >=17 mm MV E/E' Tissue Velocity Lateral 8.04 Right Ventricle Pulse Doppler S Wave 14.3 >=9.5 cm/s Left Ventricle E Wave Speed 94.1 cm/s Left Ventricle A Wave Speed 87.5 cm/s MV E/A ratio 1.1 Left Ventricle Ea Septal Wave Speed 9.5 cm/s MV E/e' septal 9.91 Left Ventricle E/e' Average 9.0 Left Atrial Volume 47 mL Left Atrial Volume Index by Height 29 mL/m Right Atrium Area 14 cm2 Right Atrium Area index 7 cm2/m2 Aortic Arch Diameter 27 mm Right Atrium Pressure Estimated 3 mmHg Echo E/Ea 9.91 Anatomical Region Laterality Modality Heart Ultrasound Narrative 06/12/2024 11:08 AM EST Images from the original result were not included. Mild septal thickening. Normal LV systolic function EF 65%. Ascending aorta measures normal in size up to 3.4 cm. Normal RV size and function. Normal diastolic function. No significant valvular heart disease is seen. No thoracic aneurysm is noted on this study. Left Ventricle The left ventricle is normal in size. There is discrete upper septal hypertrophy. The interventricular septal thickness is 11 mm. The LV posterior wall thickness is 8 mm. There is normal left ventricular systolic function. The LV ejection fraction is 65% (calculated via biplane measurement). There are no wall motion abnormalities. LV diastolic function appears within normal limits for age. The E/A ratio is 1.1. The e' septal wave velocity is 9.5 cm/s. The e' lateral wave velocity is 11.7 cm/s. The average E/e' ratio is 9.0. Right Ventricle The right ventricle is normal in size. The RV basal dimension is 27 mm. There is normal right ventricular systolic function. TAPSE is 26 mm. RV S' wave is 14.3 cm/s. Left Atrium The left atrium is normal in size. The left atrial volume is 47 mL. There are normal flow patterns in the pulmonary vein. Right Atrium The right atrium is normal in size. The right atrial area is 14 cm2. The IVC is normal in size with normal inspiratory collapse. This is consistent with normal RA pressure. The IVC diameter is 17 mm (normal: <= 21 mm). Hepatic veins are normal in size. Mitral Valve The mitral valve appears normal. There is no mitral stenosis. There is trace mitral regurgitation. Tricuspid Valve The tricuspid valve appears normal. There is no tricuspid stenosis. There is no tricuspid regurgitation. RV systolic pressure could not be estimated due to insufficient TR Doppler envelope. Aortic Valve The aortic valve is tricuspid with normal leaflets. There is no aortic stenosis. There is no aortic regurgitation. The visualized portions of the thoracic aorta appear normal in size. The aortic sinus diameter is 28 mm. The ascending aortic diameter is 34 mm. The aortic arch diameter is 27 mm. Pulmonic Valve The pulmonic valve appears normal. Pericardium There is no pericardial effusion. There are no pleural effusions. General Findings The image quality was good (2). Technique(s) used in the evaluation: Color flow Doppler and Spectral Doppler. The predominant rhythm during the study was sinus. Comparison Findings There are no prior studies for comparison. IAS/IVS The interatrial septum appears normal. There is no evidence of patent foramen ovale (PFO). The interventricular septum appears normal. There is no evidence of a ventricular septal defect. us Akash Vázquez MD ECHO ORDERABLES Final Re sult documented in this encounter Visit Diagnoses Diagnosis Thoracic aortic aneurysm without rupture, unspecified part- Primary Thoracic aortic aneurysm without rupture, unspecified part documented in this encounter Care Teams Solar Sales Representative And Assessor Relationship Specialty Start Date End Date Da Licea MD [address] [place] [address] [email or web address] PCP - General Family Medicine 05/22/23 documented as of this encounter Additional Source Comments The information contained in this document represents components of the legal health record. It is not the complete legal health record.[facility]
--- OUTSIDE RECORDS SUMMARY | 2025-01-26 12:45 | XMS_ITS | Encounter Summary ---
Author Organization [facility] Address [address] [facility] [address] [place] [address] Phone Care Team Providers Care Retail Wireless Sales Representative Name Role Phone Da Licea MD Primary Care Prov ider Da Licea MD Primary Care Prov ider Encounter Details Date Type Department Care Team (Late st Contact Info) Description 04/20/2017 Ancillary Orders Virtual Department 30 [place] [address] Da Licea MD [address] [place] [address] [email or web address] Breast screening Social History Tobacco [...] Description 02/09/2025 11:20 AM EDT Office Visit [facility] [address] [place] [address] 3rd Floor, [address] [place] [address] Jair [place] MD 22 [facility], [address] [place] [address] 02/18/2025 10:30 AM EDT Nutrition [facility] General Surgical Care 15 [place] [address] Bri Wheeler LDN [address] [place] [place] [address] 03/24/2025 10:15 AM EST Office Visit [facility] General Surgical Care 15 [place] [address] Chhaya Espana, HOT SAW OPERATOR [address] [facility], 2nd [place] [address] 03/30/2025 3:00 PM EST Office Visit [facility] Pulmonary, Allergy and Critical Care Medicine 10 [place] [address] Luis [place] MD 30 [place] [address] 03/31/2025 2:00 PM EST Office Visit [facility] 22 [facility] 3rd Floor, [address] [place] [address] Jeyson Fagan MD 22 [facility], [facility] 301 [place] [address] 06/09/2025 9:10 AM EST Office Visit [facility] Rheumatology 22 [place] [address] Nury Jackson MD, MPH [address] [facility], [facility] 203 [place] [address] documented as of this encounter Results * BI MAMMOGRAM SCREENING WITH TOMOSYNTHESIS WITH CAD (BILATERAL) (06/05/2017 9:34 AM EST) Anatomical Region Laterality Modality Breast Left, Breast Right, Breast Bilateral Bila teral Mammography 06/05/2017 12:3 1 PM EST Impressions 06/05/2017 12:35 PM EST No mammographic change indicative of malignancy. Annual screening is recommended. BI-RADS CATEGORY: 2 - Benign finding. DENSITY: The breast tissue is heterogeneously dense, an appearance which lowers the sensitivity of mammography. POS -[id number] Narrative 06/05/2017 12:35 PM EST Bilateral full-field digital screening mammography is obtained and read in conjunction with computer-aided detection. Tomosynthesis as well as 2-D C view imaging of both breasts in two planes also obtained. Comparison made to multiple prior, most recent 05/17/2016, and most remote 10/26/2010. No dominant mass, architectural distortion, worrisome asymmetry, or suspicious calcification is identified. No skin or nipple finding of concern is appreciated. Numerous bilateral calcifications demonstrate no worrisome interval change. Procedure Note Aga Brady MD - 06/05/2017 Bilateral full-field digital screening mammography is obtained and read inconjunction with computer-aided detection. Tomosynthesis as well as 2-D Cview imaging of both breasts in two planes also obtained. Comparison madeto multiple prior, most recent 05/17/2016, and most remote 10/26/2010. No dominant mass, architectural distortion, worrisome asymmetry, orsuspicious calcification is identified. No skin or nipple finding ofconcern is appreciated. Numerous bilateral calcifications demonstrate noworrisome interval change. IMPRESSION: No mammographic change indicative of malignancy. Annual screening isrecommended. BI-RADS CATEGORY: 2 - Benign finding. DENSITY: The breast tissue is heterogeneously dense, an appearance whichlowers the sensitivity of mammography. POS -CDHMAM2 Da Wisdom MD IMG MG EXAMS Fi nal Result documented in this encounter Visit Diagnoses Diagnosis Breast screening Breast screening, unspecified Breast screening Breast screening, unspecified documented in this encounter Additional Health Concerns Infection Onset Date Last Indicated Resolved Time CoV-Risk 04/12/2020 04/12/2020 04/26/2020 2:06 AM EST CoV-Risk 03/06/2022 03/06/2022 03/17/2022 1:24 AM EST documented as of this encounter Care Teams Retail Wireless Sales Representative Relationship Specialty Start Date End Date Da Licea MD PCP - General Family Medicine 04/20/17 4 Da Licea MD [address] [place] [address] PCP - General Family Medicine 05/22/23 documented as of this encounter Additional Source Comments The information contained in this document represents components of the legal health record. It is not the complete legal health record.[facility]
--- OUTSIDE RECORDS SUMMARY | 2025-01-26 12:45 | XMS_ITS | Encounter Summary ---
Author Organization [facility] Address [address] [facility] [address] [place] [address] Phone Care Team Providers Care Director Zone Name Role Phone Da Licea MD Primary Care Prov ider Encounter Details Date Type Department Care Team (Late st Contact Info) Description 06/03/2024 Procedure Pass [facility] Echo Lab 30 [place] [address] Social History Tobacco Use Types Packs/Day Years [...] Description 02/09/2025 11:20 AM EDT Office Visit [facility] 22 [facility] 3rd Floor, [address] [place] [address] Jair Mercer MD [address] [address] 02/18/2025 10:30 AM EDT Nutrition [facility] General Surgical Care [address] [place] [address] Bri Wheeler LDN 15 [facility] [place]. [address] [place] [address] 03/24/2025 10:15 AM EST Office Visit [facility] General Surgical Care [address] [place] [address] Chhaya Espana, ENROBING MACHINE FEEDER [facility], 2nd [place] [address] 03/30/2025 3:00 PM EST Office Visit [facility] Pulmonary, Allergy and Critical Care Medicine 10 [facility] [place] [address] Luis Moore MD 30 [place] [address] 03/31/2025 2:00 PM EST Office Visit [facility] [address] 3rd Floor, [address] [place] [address] Jeyson Fagan MD [address] [facility], [address] [place] [address] [email or web address] 06/09/2025 9:10 AM EST Office Visit [facility] Rheumatology 22 [place] [address] Nury Jackson MD, MPH [address] [facility], [address] [place] [address] [email or web address] documented as of this encounter Visit Diagnoses Not on filedocumented in this encounter Care Teams Director Zone Relationship Specialty Start Date End Date Da Licea MD [address] [place] [address] [email or web address] PCP - General Family Medicine 05/22/23 documented as of this encounter Additional Source Comments The information contained in this document represents components of the legal health record. It is not the complete legal health record.[facility]
--- OUTSIDE RECORDS SUMMARY | 2025-01-26 12:45 | XMS_ITS | Encounter Summary ---
Author Organization [facility] Address [address] [facility] [address] [place] [phone] Phone Care Team Providers Care Duct Cleaner Name Role Phone Da Licea MD Primary Care Prov ider Encounter Details Date Type Department Care Team (Late st Contact Info) Description 07/11/2024 Transcribe Orders [facility] Specimen Processing 30 [place] [address] Da Licea MD 238 [place], [place] [id number] [email or web address] Social History Tobacco Use Types Packs/Day Years [...] Description 02/09/2025 11:20 AM EDT Office Visit [facility] 22 [facility] 3rd Floor, [address] [place] [address] Jair Mercer MD [address] [address] 02/18/2025 10:30 AM EDT Nutrition [facility] General Surgical Care 15 [place] [address] Bri Wheeler LDN [facility] [address] [place] [address] 03/24/2025 10:15 AM EST Office Visit [facility] General Surgical Care 15 [place] [address] Chhaya Espana, LABOR CREW SUPERVISOR 15 [facility], 2nd [place] [address] 03/30/2025 3:00 PM EST Office Visit [facility] Pulmonary, Allergy and Critical Care Medicine 10 [facility] [place] [address] Luis [place] MD 30 [place] [address] 03/31/2025 2:00 PM EST Office Visit [facility] [address] [facility] 3rd Floor, [address] [place] [address] Jeyson Fagan MD 22 [facility], [address] [place] [address] 06/09/2025 9:10 AM EST Office Visit [facility] Rheumatology 22 [place] [address] Nury Jackson MD, MPH 22 [facility], [address] [place] [address] documented as of this encounter Visit Diagnoses Not on filedocumented in this encounter Care Teams Duct Cleaner Relationship Specialty Start Date End Date Da Licea MD [address] [place] [address] [email or web address] PCP - General Family Medicine 05/22/23 documented as of this encounter Additional Source Comments The information contained in this document represents components of the legal health record. It is not the complete legal health record.[facility]
--- OUTSIDE RECORDS SUMMARY | 2025-01-26 12:45 | XMS_ITS | Encounter Summary ---
Author Organization [facility] Address [address] [facility] [address] [place] [address] Phone Care Team Providers Care Associate Creative Director Name Role Phone Da Licea MD Primary Care Prov ider Da Licea MD Primary Care Prov ider Encounter Details Date Type Department Care Team (Late st Contact Info) Description 03/12/2023 Procedure Pass [facility], [facility] 30 [place] [address] Social History Tobacco Use Types Packs/Day Years [...] Description 02/09/2025 11:20 AM EDT Office Visit [address] 3rd Floor, [address] [place] [address] Jair Mer[place] MD 22 [facility], [address] [address] 02/18/2025 10:30 AM EDT Nutrition [facility] General Surgical Care [address] [place] [address] Bri Wheeler LDN 15 [facility]. [address] [place] [address] 03/24/2025 10:15 AM EST Office Visit [facility] General Surgical Care [address] [place] [address] Chhaya Espana, COOLER OPERATOR 15 [facility], 2nd [place] [address] 03/30/2025 3:00 PM EST Office Visit [facility] Pulmonary, Allergy and Critical Care Medicine 10 [place] [address] Luis [place] MD 30 [place] [address] 03/31/2025 2:00 PM EST Office Visit [facility] [address] Floor, [address] [place] [address] Jeyson Fagan MD 22 [facility], [address] [place] [address] [email or web address] 06/09/2025 9:10 AM EST Office Visit [facility] Rheumatology [address] [place] [address] Nuyr Jackson MD, MPH [address] [facility], [address] [place] [address] [email or web address] documented as of this encounter Visit Diagnoses Not on filedocumented in this encounter Care Teams Associate Creative Director Relationship Specialty Start Date End Date Da Licea MD PCP - General Family Medicine 04/20/17 4 Da Licea MD [address] [place] [address] PCP - General Family Medicine 05/22/23 documented as of this encounter Additional Source Comments The information contained in this document represents components of the legal health record. It is not the complete legal health record.[facility]
--- OUTSIDE RECORDS SUMMARY | 2025-01-26 12:45 | XMS_ITS | Encounter Summary ---
Author Organization [facility] Address [address] [address] Phone Care Team Providers Care Residential Installer Name Role Phone Da Licea MD Primary Care Prov ider Da Licea MD Primary Care Prov ider Encounter Details Date Type Department Care Team (Late st Contact Info) Description 03/12/2023 Transcribe Orders Virtual Department 30 [place] [address] Da Licea MD [address] [place], [place] [phone] [email or web address] Breast screening (Primary Dx) Social History Tobacco Use Types [...] Description 02/09/2025 11:20 AM EDT Office Visit [facility] [address] [place] [address] 3rd Floor, [address] [place] [address] Jair Mercer MD 22 [facility], [address] [address] 02/18/2025 10:30 AM EDT Nutrition [facility] General Surgical Care [address] [place] [address] Bri Wheeler LDN 15 [facility]. [address] [place] [address] 03/24/2025 10:15 AM EST Office Visit [facility] General Surgical Care [address] [place] [address] [place] [address] Chhaya Espana, SCRIPT GIRL 15 [facility], 2nd [place] [address] 03/30/2025 3:00 PM EST Office Visit [facility] [address] [place] [address] Luis Moore MD 30 [place] [address] 03/31/2025 2:00 PM EST Office Visit [facility] 22 [facility] 3rd Floor, [address] [place] [address] Jeyson Fagan MD [address] [place] [address], [address] [place] [address] 06/09/2025 9:10 AM EST Office Visit [facility] Rheumatology 22 [place] [address] Nury Jackson MD, MPH 22 [facility], [address] [place] [address] documented as of this encounter Results * BI MAMMOGRAM SCREENING WITH TOMOSYNTHESIS WITH CAD (BILATERAL) (06/01/2023 10:27 AM EST) Anatomical Region Laterality Modality Breast Left, Breast Right, Breast Bilateral Bila teral Mammography 06/06/2023 11:1 5 AM EST Impressions 06/06/2023 12:23 PM EST No mammographic signs of malignancy. Annual screening is recommended. BI-RADS CATEGORY: 2 - Benign finding. DENSITY: The breast tissue is heterogeneously dense, which could obscure a lesion on mammography. Narrative 06/06/2023 12:23 PM EST Bilateral mammography is performed in conjunction with computed aided detection. 3-D tomography along with 2-D C view imaging was also performed. Comparison made to previous dated as far back as 06/05/2017 and as recent as 04/12/2022. There is a history of a sonographically proven cyst. 9 mm mass in the periareolar right breast remains stable. No suspicious masses, areas of architectural distortion or suspicious microcalcifications. Bilateral punctate microcalcifications in the anterior aspects of the breasts are stable. Procedure Note Abran Sweet MD - 06/06/2023 Bilateral mammography is performed in conjunction with computed aideddetection. 3-D tomography along with 2-D C view imaging was alsoperformed. Comparison made to previous dated as far back as 06/05/2017 andas recent as 04/12/2022. There is a history of a sonographically proven cyst. 9 mm mass in the periareolar right breast remains stable. No suspicious masses, areas of architectural distortion or suspiciousmicrocalcifications. Bilateral punctate microcalcifications in theanterior aspects of the breasts are stable. IMPRESSION: No mammographic signs of malignancy. Annual screening is recommended. BI-RADS CATEGORY: 2 - Benign finding. DENSITY: The breast tissue is heterogeneously dense, which could obscurea lesion on mammography. Da Wisdom MD IMG MG EXAMS Fi nal Result documented in this encounter Visit Diagnoses Diagnosis Breast screening- Primary Breast screening, unspecified Breast screening Breast screening, unspecified documented in this encounter Care Teams Residential Installer Relationship Specialty Start Date End Date Da Licea MD PCP - General Family Medicine 04/20/17 4 Da Licea MD [address] [place] [address] PCP - General Family Medicine 05/22/23 documented as of this encounter Additional Source Comments The information contained in this document represents components of the legal health record. It is not the complete legal health record.[facility]
--- OUTSIDE RECORDS SUMMARY | 2025-01-26 12:45 | XMS_ITS | Encounter Summary ---
Author Organization [facility] Address 399 [facility] [address] [place] [address] Phone Care Team Providers Care Drum Sander Offbearer Name Role Phone Da Licea MD Primary Care Prov ider Encounter Details Date Type Department Care Team (Late st Contact Info) Description 03/26/2024 Procedure Pass [facility], [address] [address] Social History Tobacco Use Types Packs/Day Years [...] Description 02/09/2025 11:20 AM EDT Office Visit [facility] 22 [facility] 3rd Floor, [address] [place] [address] Jair Mercer MD 22 [facility], [address] [address] 02/18/2025 10:30 AM EDT Nutrition [facility] General Surgical Care 15 [place] [address] Bri Wheeler LDN [facility] [address] [place] [address] 03/24/2025 10:15 AM EST Office Visit [facility] General Surgical Care 15 [place] [address] Chhaya Espana, TEXTILE CLOTHING AND FOOTWEAR MECHANIC 15 [facility], 2nd [place] [address] 03/30/2025 3:00 PM EST Office Visit [facility] Critical [facility] Medicine 10 [facility] [place] [address] Luis Moore MD 30 [place] [address] 03/31/2025 2:00 PM EST Office Visit [facility] [address] 3rd Floor, [address] [place] [address] Jeyson Fagan MD 22 [facility], [address] [place] [address] [email or web address] 06/09/2025 9:10 AM EST Office Visit [facility] Rheumatology 22 [place] [address] Nury Jackson MD, MPH 22 [facility], [address] [place] [address] [email or web address] documented as of this encounter Visit Diagnoses Not on filedocumented in this encounter Care Teams Drum Sander Offbearer Relationship Specialty Start Date End Date Da Licea MD [address] [place] [address] [email or web address] PCP - General Family Medicine 05/22/23 documented as of this encounter Additional Source Comments The information contained in this document represents components of the legal health record. It is not the complete legal health record.[facility]
--- OUTSIDE RECORDS SUMMARY | 2025-01-26 12:45 | XMS_ITS | Encounter Summary ---
Author Organization [facility] Address [address] [place] [address] [address] [place] [address] Phone Care Team Providers Care Tariff Clerk Name Role Phone Da Licea MD Primary Care Prov ider Da Licea MD Primary Care Prov ider Encounter Details Date Type Department Care Team (Late st Contact Info) Description 05/08/2018 Transcribe Orders [facility] [address] [place] [address] Da Licea MD [address] [place], [place] [phone] [email or web address] Other abnormal glucose (Primary Dx) Social History Tobacco Use Types Packs/Day Years Used Date Smoking Tobacco: Never Smokeless Tobacco: Never Alcohol Use Standard Drinks/Week Comments Yes 6 (1 standard drink = 0.6 oz pur [...] Description 02/09/2025 11:20 AM EDT Office Visit [facility] [address] [place] [address] 3rd Floor, [address] [place], [place] [phone] Jair Mercer MD 22 [facility], [address] [place] [address] 02/18/2025 10:30 AM EDT Nutrition [facility] General Surgical Care 15 [place] [address] rBi Wheeler LDN [address] [place]. [address] [place] [address] 03/24/2025 10:15 AM EST Office Visit [facility] General Surgical Care 15 [place] [address] Chhaya Espana, ANNEALING FURNACE TENDER 15 [facility], 2nd [place] [address] 03/30/2025 3:00 PM EST Office Visit [facility] Pulmonary, Allergy and Critical Care Medicine 10 [place] [address] Luis Moore MD 30 [place] [address] 03/31/2025 2:00 PM EST Office Visit [facility] [address] [place] [address] 3rd Floor, [address] [place] [address] Jeyson Fagan MD 22 [facility], [address] [address] 06/09/2025 9:10 AM EST Office Visit [facility] Rheumatology 22 [place] [address] Nury Jackson MD, MPH 22 [facility], [address] [place] [address] documented as of this encounter Results * Hemoglobin A1c (05/08/2018 10:28 AM EST) HEMOGLOBIN A1C 5.2 4.3 - 5.8 % [facility] Blood 05/08/2018 10:2 8 AM EST 05/08/2018 11:11 AM EST Da Wisdom MD LAB BLOOD ORDERABL ES Final Result [facility] 30 [place] [address] documented in this encounter Visit Diagnoses Diagnosis Other abnormal glucose- Primary documented in this encounter Additional Health Concerns Infection Onset Date Last Indicated Resolved Time CoV-Risk 04/12/2020 04/12/2020 04/26/2020 2:06 AM EST CoV-Risk 03/06/2022 03/06/2022 03/17/2022 1:24 AM EST documented as of this encounter Care Teams Tariff Clerk Relationship Specialty Start Date End Date Da Licea MD PCP - General Family Medicine 04/20/17 4 Da Licea MD [address] [place] [address] PCP - General Family Medicine 05/22/23 documented as of this encounter Additional Source Comments The information contained in this document represents components of the legal health record. It is not the complete legal health record.[facility]
--- OUTSIDE RECORDS SUMMARY | 2025-01-26 12:45 | XMS_ITS | Encounter Summary ---
Author Organization [facility] Address 399 [facility] [address] [place] [address] Phone Care Team Providers Care Retort Press Operator Name Role Phone Da Licea MD Primary Care Prov ider Encounter Details Date Type Department Care Team (Late st Contact Info) Description 07/12/2023 Transcribe Orders [facility] [address] [place] [address] Da Licea MD [address] [place], [place] [phone] [email or web address] Essential (primary) hypertension (Primary Dx) Social History Tobacco Use Types [...] Description 02/09/2025 11:20 AM EDT Office Visit [facility] 22 [facility] 3rd Floor, [address] [place] [address] Jair Mercer MD 22 [facility], [address] [address] 02/18/2025 10:30 AM EDT Nutrition [facility] General Surgical Care 15 [place] [address] Bri Wheeler LDN 15 [facility]. [address] [place] [address] 03/24/2025 10:15 AM EST Office Visit [facility] General Surgical Care [address] [place] [address] [place] [address] Chhaya Espana, KG 15 [facility], 2nd [place] [address] 03/30/2025 3:00 PM EST Office Visit [facility] [address] [place] [address] Luis Moore MD 30 [place] [address] 03/31/2025 2:00 PM EST Office Visit [facility] [address] [place] 3rd Floor, [address] [place] [address] Jeyson Fagan MD 22 [facility], [address] [place] [address] 06/09/2025 9:10 AM EST Office Visit [facility] Rheumatology [address] [place] [address] Nury Jackson MD, MPH 22 [facility], [address] [place] [address] [email or web address] documented as of this encounter Results * (ABNORMAL) Basic metabolic panel (07/18/2023 9:49 AM EDT) SODIUM 140 133 - 146 mmol/L [facility] CHLORIDE 102 96 - 108 mmol/L [facility] POTASSIUM 4.1 3.3 - 5.1 mmol/L [facility] CO2 24 21 - 35 mmol/L [facility] BUN 17 6 - 19 mg/dL [facility] CREATININE 0.70 0.5 - 1.5 mg/dL [facility] GLUCOSE 101(H) 70 - 99 mg/dL [facility] CALCIUM 9.1 8.4 - 10.3 mg/dL [facility] EGFR 102 >59 mL/min/1.7 3m2 [facility] Comment:Estimated glomerular filtration rate calculated using the CKD-EPI refit equation. ANION GAP 18 10 - 20 mmol/L [facility] Blood 07/18/2023 9:49 AM EDT 07/18/2023 9:54 AM EDT us Da Wisdom MD LAB BLOOD ORDERABL ES Final Result [facility] 30 [place] [address] * (ABNORMAL) Lipid panel (07/18/2023 9:49 AM EDT) HDL 77 mg/dL [facility] Comment: Interpretation <40 mg/dL: Low HDL cholesterol (major risk factor for CHD) Greater than or equal to 60 mg/dL: High HDL cholesterol ( negative risk factor for CHD) HDL - cholesterol is affected by a number of factors, e.g. smoking, excerise, hormones, sex and age. CHOLESTEROL 239 0 - 240 mg/dL [facility] TRIGLYCERIDES 75 30 - 160 mg/dL [facility] LDL 147(H) 50 - 129 mg/dL [facility] Comment: LDL levels in terms of risk for coronary heart disease: <100 mg/dL: Optimal 100-129 mg/dL: Near or above optimal 130-159 mg/dL: Borderline high 160-189 mg/dL: High >190 mg/dL: Very High CARDIAC RISK RATIO 3.1(L) 3.3 - 4.4 [facility] Blood 07/18/2023 9:49 AM EDT 07/18/2023 9:54 AM EDT Da Wisdom MD LAB BLOOD ORDERABL ES Final Result [facility] [address] [place] [address] documented in this encounter Visit Diagnoses Diagnosis Essential (primary) hypertension- Primary Unspecified essential hypertension documented in this encounter Care Teams Retort Press Operator Relationship Specialty Start Date End Date Da Licea MD 238 [place] [address] PCP - General Family Medicine 05/22/23 documented as of this encounter Additional Source Comments The information contained in this document represents components of the legal health record. It is not the complete legal health record.[facility]
--- OUTSIDE RECORDS SUMMARY | 2025-01-26 12:45 | XMS_ITS | Encounter Summary ---
Author Organization [facility] Address [address] [facility] [address] [place] [address] Phone Care Team Providers Care House Coordinator Name Role Phone Da Licea MD Primary Care Prov ider Da Licea MD Primary Care Prov ider Encounter Details Date Type Department Care Team (Late st Contact Info) Description 01/31/2021 Procedure Pass [facility], [address] [address] Social History Tobacco Use Types Packs/Day Years [...] Description 02/09/2025 11:20 AM EDT Office Visit [facility] [address] [place] [address] 3rd Floor, [address] [place] [address] Jair Mercer MD 22 [facility], [address] [place] [address] 02/18/2025 10:30 AM EDT Nutrition [facility] General Surgical Care [address] [place] [address] Bri Wheeler LDN [address] [place] [place] [address] 03/24/2025 10:15 AM EST Office Visit [facility] General Surgical Care 15 [place] [address] Chhaya Espana, SEAT COVER INSTALLER 15 [facility], 2nd [place] [address] 03/30/2025 3:00 PM EST Office Visit [facility]ergy [facility] Critical [facility] Medicine 10 [place] [address] Luis Moore MD 30 [place] [address] 03/31/2025 2:00 PM EST Office Visit [facility] 22 [facility] 3rd Floor, [address] [place] [address] Jeyson Fagan MD 22 [facility], [facility] 301 [place] [address] 06/09/2025 9:10 AM EST Office Visit [facility] Rheumatology [address] [place] [address] Nury Jackson MD, MPH 22 [facility], [address] [place] [address] documented as of this encounter Visit Diagnoses Not on filedocumented in this encounter Additional Health Concerns Infection Onset Date Last Indicated Resolved Time CoV-Risk 03/06/2022 03/06/2022 03/17/2022 1:24 AM EST documented as of this encounter Care Teams House Coordinator Relationship Specialty Start Date End Date Da Licea MD PCP - General Family Medicine 04/20/17 4 Da Licea MD 238 [place] [address] [email or web address] PCP - General Family Medicine 05/22/23 documented as of this encounter Additional Source Comments The information contained in this document represents components of the legal health record. It is not the complete legal health record.[facility]
--- OUTSIDE RECORDS SUMMARY | 2025-01-26 12:45 | XMS_ITS | Encounter Summary ---
Author Organization [facility] Address [address] [place] [address] [address] [place] [address] Phone Care Team Providers Care Log Pond Worker Name Role Phone Da Licea MD Primary Care Prov ider Da Licea MD Primary Care Prov ider Encounter Details Date Type Department Care Team (Late st Contact Info) Description 08/09/2020 Transcribe Orders [facility] 30 [place] [address] Da Licae MD [address] [place], [place] [phone] [email or web address] Social History Tobacco Use Types Packs/Day [...] AM EDT Office Visit [facility] [address] [place] [address] 3rd Floor, [address] [place] [address] Jair Mercer MD 22 [facility], [address] [place] [address] 02/18/2025 10:30 AM EDT Nutrition [facility] General Surgical Care [address] [place] [address] Bri Wheeler LDN [address] [place] [place] [address] 03/24/2025 10:15 AM EST Office Visit [facility] General Surgical Care [address] [place] [address] Chhaya Espana, TECHNICAL SALES SPECIALIST 15 [facility], 2nd [place] [address] 03/30/2025 3:00 PM EST Office Visit [facility] Pulmonary, Allergy and Critical Care Medicine 10 [place] [address] Luis Moore MD 30 [place] [address] 03/31/2025 2:00 PM EST Office Visit [facility] 22 [facility] 3rd Floor, [address] [place] [address] Jeyson Fagan MD 22 [facility], [address] [address] 06/09/2025 9:10 AM EST Office Visit [facility] Rheumatology [address] [place] [address] Nury Jackson MD, MPH 22 [facility], [facility] 203 [place] [address] documented as of this encounter Visit Diagnoses Not on filedocumented in this encounter Additional Health Concerns Infection Onset Date Last Indicated Resolved Time CoV-Risk 03/06/2022 03/06/2022 03/17/2022 1:24 AM EST documented as of this encounter Care Teams Log Pond Worker Relationship Specialty Start Date End Date Da Licea MD PCP - General Family Medicine 04/20/17 4 Da Licea MD [address] [place] [address] PCP - General Family Medicine 05/22/23 documented as of this encounter Additional Source Comments The information contained in this document represents components of the legal health record. It is not the complete legal health record.[facility]
--- OUTSIDE RECORDS SUMMARY | 2025-01-26 12:45 | XMS_ITS | Encounter Summary ---
Author Organization [facility] Address [address] [facility] [address] [place] [address] Phone Care Team Providers Care Custom Wood Stair Builder Name Role Phone Da Licea MD Primary Care Prov ider Encounter Details Date Type Department Care Team (Late st Contact Info) Description 03/26/2024 Transcribe Orders Virtual Department 30 [place] [address] Da Licea MD [address] [place], [place] [phone] [email or web address] Breast screening (Primary Dx) Social History Tobacco [...] Description 02/09/2025 11:20 AM EDT Office Visit [facility] 22 [facility] 3rd Floor, [address] [place] [address] Jair Mercer MD 22 [facility], [facility] 301 [place] [address] 02/18/2025 10:30 AM EDT Nutrition [facility] General Surgical Care [address] [place] [address] Bri Wheeler LDN 15 [facility] 201 [place] [address] 03/24/2025 10:15 AM EST Office Visit [facility] General Surgical Care [address] [place] [address] Chhaya Espana, CORK SLABS SAWYER 15 [facility], 2nd [place] [address] 03/30/2025 3:00 PM EST Office Visit [facility] Allergy [facility] Critical Care Medicine 10 [place] [address] Luis Moore MD 30 [place] [address] 03/31/2025 2:00 PM EST Office Visit [facility] [address] [place] [address] 3rd Floor, [address] [place] [address] Jeyson Fagan MD 22 [facility], [address] [place] [address] 06/09/2025 9:10 AM EST Office Visit [facility] Rheumatology [address] [place] [address] Nury Jackson MD, MPH 22 [facility], [address] [place] [address] documented as of this encounter Results * BI MAMMOGRAM SCREENING WITH TOMOSYNTHESIS WITH CAD (BILATERAL) (09/16/2024 10:23 AM EDT) Anatomical Region Laterality Modality Breast Left, Breast Right, Breast Bilateral Bila teral Mammography 09/17/2024 6:03 AM EDT Impressions 09/17/2024 6:06 AM EDT No mammographic evidence of malignancy in either breast. Annual screening mammography is recommended. BI-RADS 1 NEGATIVE The patient will be notified of the results and recommendations. Narrative 09/17/2024 6:06 AM EDT BI MAMMOGRAM SCREENING WITH TOMOSYNTHESIS WITH CAD (BILATERAL) Additional patient information: Screening. COMPARISON: Comparison is made with relevant prior imaging. Breast composition: There are scattered areas of fibroglandular density. FINDINGS: No abnormal masses, suspicious calcifications, or other significant findings are identified mammographically in either breast. Procedure Note Yakelin Robles MD - 09/17/2024 BI MAMMOGRAM SCREENING WITH TOMOSYNTHESIS WITH CAD (BILATERAL) Additional patient information: Screening. COMPARISON: Comparison is made with relevant prior imaging. Breast composition: There are scattered areas of fibroglandular density. FINDINGS: No abnormal masses, suspicious calcifications, or other significantfindings are identified mammographically in either breast. IMPRESSION: No mammographic evidence of malignancy in either breast. Annual screening mammography is recommended. BI-RADS 1 NEGATIVE The patient will be notified of the results and recommendations. Da Wisdom MD IMG MG EXAMS Fi nal Result documented in this encounter Visit Diagnoses Diagnosis Breast screening- Primary Breast screening, unspecified Breast screening Breast screening, unspecified documented in this encounter Care Teams Custom Wood Stair Builder Relationship Specialty Start Date End Date Da Licea MD [address] [place] [phone] [email or web address] PCP - General Family Medicine 05/22/23 documented as of this encounter Additional Source Comments The information contained in this document represents components of the legal health record. It is not the complete legal health record.[facility]
--- OUTSIDE RECORDS SUMMARY | 2025-01-26 12:45 | XMS_ITS | Encounter Summary ---
Author Organization [facility] Address [address] [facility] [address] [place] [address] Phone Care Team Providers Care Engine Service Repairer Name Role Phone Da Licea MD Primary Care Prov ider Encounter Details Date Type Department Care Team (Late st Contact Info) Description 08/21/2024 Procedure Pass [facility], Ct Scan - [address] [address] Social History Tobacco Use Types Packs/Day Years [...] Description 02/09/2025 11:20 AM EDT Office Visit [facility] [address] [facility] 3rd Floor, [address] [place] [address] Jair Mercer MD 22 [facility], [address] [address] 02/18/2025 10:30 AM EDT Nutrition [facility] General Surgical Care 15 [place] [address] Bri Wheeler LDN 15 [facility] Catracho. [address] [place] [address] 03/24/2025 10:15 AM EST Office Visit [facility] General Surgical Care 15 [place] [address] Chhaya Espana, IN HOME TUTOR 15 [facility], 2nd [place] [address] 03/30/2025 3:00 PM EST Office Visit [facility] All[facility] 10 [facility] [place] [address] Luis Moore MD 30 [place] [address] 03/31/2025 2:00 PM EST Office Visit [facility] [address] 3rd Floor, [address] [place] [address] Jeyson Fagan MD 22 [facility], [address] [place] [address] [email or web address] 06/09/2025 9:10 AM EST Office Visit [facility] Rheumatology 22 [place] [address] Nury Jackson MD, MPH 22 [facility], [address] [place] [address] [email or web address] documented as of this encounter Visit Diagnoses Not on filedocumented in this encounter Care Teams Engine Service Repairer Relationship Specialty Start Date End Date Da Licea MD [address] [place] [address] [email or web address] PCP - General Family Medicine 05/22/23 documented as of this encounter Additional Source Comments The information contained in this document represents components of the legal health record. It is not the complete legal health record.[facility]
--- OUTSIDE RECORDS SUMMARY | 2025-01-26 12:45 | XMS_ITS | Encounter Summary ---
Author Organization [facility] Address [address] [facility] [address] [place] [address] Phone Care Team Providers Care Customer Expert Name Role Phone Da Licea MD Primary Care Prov ider Encounter Details Date Type Department Care Team (Late st Contact Info) Description 05/06/2024 Transcribe Orders Virtual Department 30 [place] [address] Da Licea MD 238 [place], [place] [phone] [email or web address] Social History Tobacco Use Types Packs/Day [...] Description 02/09/2025 11:20 AM EDT Office Visit [facility] 22 [facility] 3rd Floor, [address] [place] [address] Jair Mercer MD [address] [address] 02/18/2025 10:30 AM EDT Nutrition [facility] General Surgical Care 15 [place] [address] Bri Wheeler LDN 15 [facility] [address] [address] 03/24/2025 10:15 AM EST Office Visit [facility] General Surgical Care 15 [place] [address] Chhaya Espana, CAR UNLOADER HELPER 15 [facility], 2nd [place] [address] 03/30/2025 3:00 PM EST Office Visit [facility]monary, Allergy [facility] Critical Care Medicine 10 [facility] [place] [address] Luis Moore MD 30 [place] [address] 03/31/2025 2:00 PM EST Office Visit [facility] [address] 3rd Floor, [address] [place] [address] Jeyson Fagan MD 22 [facility], [address] [place] [address] 06/09/2025 9:10 AM EST Office Visit [facility] Rheumatology [address] [place] [address] Nury Jackson MD, MPH 22 [facility], [address] [place] [address] documented as of this encounter Visit Diagnoses Not on filedocumented in this encounter Care Teams Customer Expert Relationship Specialty Start Date End Date Da Licea MD [address] [place] [address] [email or web address] PCP - General Family Medicine 05/22/23 documented as of this encounter Additional Source Comments The information contained in this document represents components of the legal health record. It is not the complete legal health record.[facility]
--- OUTSIDE RECORDS SUMMARY | 2025-01-26 12:45 | XMS_ITS | Encounter Summary ---
Author Organization [facility] Address [address] [place] [address] [address] [place] [address] Phone Care Team Providers Care Digital Account Manager Name Role Phone Da Licea MD Primary Care Prov ider Da Licea MD Primary Care Prov ider Encounter Details Date Type Department Care Team (Late st Contact Info) Description 03/27/2018 Transcribe Orders [facility] [address] [place] [address] Da Licea MD 238 [place], [place] [phone] [email or web address] Essential hypertension, malignant (Primary Dx) Social History Tobacco Use Types [...] Description 02/09/2025 11:20 AM EDT Office Visit [facility] [address] [place] [address] 3rd Floor, [address] [place], [place] [id number] Jair Mercer MD 22 [facility], [address] [place] [address] 02/18/2025 10:30 AM EDT Nutrition [facility] General Surgical Care 15 [place] [address] Bri Wheeler LDN [address]. 201 [place] [address] 03/24/2025 10:15 AM EST Office Visit [facility] General Surgical Care 15 [place] [address] Chhaya Espana, SHIRT TURNER 15 [facility], 2nd [place] [address] 03/30/2025 3:00 PM EST Office Visit [facility]monary, Allergy and Critical Care Medicine 10 [place] [address] Luis Moore MD 30 [place] [address] 03/31/2025 2:00 PM EST Office Visit [facility] 22 [facility] 3rd Floor, [address] [place] [address] Jeyson Fagan MD [address] [place] [address], [address] [address] 06/09/2025 9:10 AM EST Office Visit [facility] Rheumatology [address] [place] [address] Nury Jackson MD, MPH 22 [facility], [address] [place] [address] documented as of this encounter Results * LFTs (hepatic panel) (03/27/2018 9:03 AM EST) ALKALINE PHOSPHATASE 43 39 - 117 U/L [facility] TOTAL BILIRUBIN 0.4 0.0 - 1.2 mg/dL [facility] DIRECT BILIRUBIN <0.2 0 - 0.3 mg/dL [facility] Bilirubin (Indirect) NOT CALCULATED 0 - 1.5 mg/dL [facility] AST 24 0 - 37 U/L [facility] ALT 12 0 - 40 U/L [facility] TOTAL PROTEIN 6.8 6.5 - 8.0 g/dL [facility] ALBUMIN 4.3 3.9 - 4.8 g/dL [facility] GLOBULIN 2.5 1 - 4.8 g/dL [facility] A/G Ratio 1.72 1.00 - 4.80 RATIO [facility] Blood 03/27/2018 9:03 AM EST 03/27/2018 9:08 AM EST us Da Wisdom MD LAB BLOOD ORDERABL ES Final Result [facility] 30 [place], [place] [id number] * (ABNORMAL) Basic metabolic panel (03/27/2018 9:03 AM EST) SODIUM 141 133 - 146 mmol/L [facility] CHLORIDE 102 96 - 108 mmol/L [facility] POTASSIUM 4.2 3.3 - 5.1 mmol/L [facility] CO2 23 21 - 35 mmol/L [facility] BUN 15 6 - 19 mg/dL [facility] CREATININE 0.60 0.5 - 1.5 mg/dL [facility] GLUCOSE 106(H) 70 - 99 mg/dL [facility] CALCIUM 8.8 8.4 - 10.3 mg/dL [facility] EGFR 106 >59 mL/min/1.7 3m2 [facility] Comment:If patient is black, multiply result by 1.159. Estimated glomerular filtration rate calculated using the CKD-EPI equation. ANION GAP 20 10 - 20 mmol/L [facility] Blood 03/27/2018 9:03 AM EST 03/27/2018 9:08 AM EST Da Wisdom MD LAB BLOOD ORDERABL ES Final Result [facility] 30 [place] [address] documented in this encounter Visit Diagnoses Diagnosis Essential hypertension, malignant- Primary documented in this encounter Additional Health Concerns Infection Onset Date Last Indicated Resolved Time CoV-Risk 04/12/2020 04/12/2020 04/26/2020 2:06 AM EST CoV-Risk 03/06/2022 03/06/2022 03/17/2022 1:24 AM EST documented as of this encounter Care Teams Digital Account Manager Relationship Specialty Start Date End Date Da Licea MD PCP - General Family Medicine 04/20/17 4 Da Licea MD 238 [place] [address] PCP - General Family Medicine 05/22/23 documented as of this encounter Additional Source Comments The information contained in this document represents components of the legal health record. It is not the complete legal health record.[facility]
--- OUTSIDE RECORDS SUMMARY | 2025-01-26 12:45 | XMS_ITS | Encounter Summary ---
Author Organization [facility] Address [address] [facility] [address] [place] [address] Phone Care Team Providers Care Travel Journalist Name Role Phone Da Licea MD Primary Care Prov ider Encounter Details Date Type Department Care Team (Late st Contact Info) Description 06/05/2024 Procedure Pass Non-Invasive Cardiology 30 [place] [address] Social History Tobacco Use Types Packs/Day Years [...] Description 02/09/2025 11:20 AM EDT Office Visit [facility] 22 [facility] 3rd Floor, [address] [place] [address] Jair Mercer MD 22 [facility], [address] [address] 02/18/2025 10:30 AM EDT Nutrition [facility] General Surgical Care 15 [place] [address] Bri Wheeler LDN 15 [facility] Catracho. [address] [place] [address] 03/24/2025 10:15 AM EST Office Visit [facility] General Surgical Care 15 [place] [address] Chhaya Espana, SPORTS MEDICINE MASSEUR 15 [facility], 2nd [place] [address] 03/30/2025 3:00 PM EST Office Visit [facility] Pulmonary, Allergy and Critical Care Medicine 10 [facility] [place] [address] Luis Moore MD 30 [place] [address] 03/31/2025 2:00 PM EST Office Visit [facility] 22 [facility] 3rd Floor, [address] [place] [address] Jeyson Fagan MD 22 [facility], [address] [place] [address] [email or web address] 06/09/2025 9:10 AM EST Office Visit [facility] Rheumatology 22 [place] [address] Nury Jackson MD, MPH 22 [facility], [address] [place] [address] [email or web address] documented as of this encounter Visit Diagnoses Not on filedocumented in this encounter Care Teams Travel Journalist Relationship Specialty Start Date End Date Da Licea MD [address] [place] [address] [email or web address] PCP - General Family Medicine 05/22/23 documented as of this encounter Additional Source Comments The information contained in this document represents components of the legal health record. It is not the complete legal health record.[facility]
--- OUTSIDE RECORDS SUMMARY | 2025-01-26 12:45 | XMS_ITS | Encounter Summary ---
Author Organization [facility] Address [address] [place] [address] [address] [place] [address] Phone Care Team Providers Care Pile Fabric Knitter Name Role Phone Da Licea MD Primary Care Prov ider Da Licea MD Primary Care Prov ider Encounter Details Date Type Department Care Team (Late st Contact Info) Description 08/24/2017 Transcribe Orders [facility] [address] [place] [address] Da Licea MD [address] [place] [phone] [email or web address] Acute alcoholism (Primary Dx) Social History Tobacco Use Types [...] 02/09/2025 11:20 AM EDT Office Visit [facility] [address] [place] [address] 3rd Floor, [address] [place] [address] Jair Mercer MD 22 [facility], [address] [place] [address] 02/18/2025 10:30 AM EDT Nutrition [facility] General Surgical Care 15 [place] [address] Bri Wheeler LDN [address] 201 [place] [address] 03/24/2025 10:15 AM EST Office Visit [facility] General Surgical Care 15 [place] [address] Chhaya Espana, DROP MACHINE OPERATOR 15 [facility], 2nd [place] [address] 03/30/2025 3:00 PM EST Office Visit [facility] [place]monary, Allergy and Critical Care Medicine 10 [place] [address] Luis Moore MD 30 [place] [address] 03/31/2025 2:00 PM EST Office Visit [facility] 22 [facility] 3rd Floor, [address] [place] [address] Jeyson Fagan MD 22 [facility], [address] [place] [address] 06/09/2025 9:10 AM EST Office Visit [facility] Rheumatology 22 [place] [address] Nuyr Jackson MD, MPH 22 [facility], [address] [place] [address] documented as of this encounter Results * TSH (08/24/2017 10:06 AM EDT) TSH 0.80 0.27 - 4.20 uIU/mL [facility] Blood 08/24/2017 10:0 6 AM EDT 08/24/2017 10:47 AM EDT Da Wisdom MD LAB BLOOD ORDERABL ES Final Result Performing Organization Address City/[facility]/ZIP Co de Phone Number [address] [address] * LFTs (hepatic panel) (08/24/2017 10:06 AM EDT) ALKALINE PHOSPHATASE 49 39 - 117 U/L [facility] TOTAL BILIRUBIN 0.3 0.0 - 1.2 mg/dL [facility] DIRECT BILIRUBIN <0.2 0 - 0.3 mg/dL [facility] Bilirubin (Indirect) NOT CALCULATED 0 - 1.5 mg/dL [facility] AST 23 0 - 37 U/L [facility] ALT 18 0 - 40 U/L [facility] TOTAL PROTEIN 7.0 6.5 - 8.0 g/dL [facility] ALBUMIN 4.4 3.9 - 4.8 g/dL [facility] GLOBULIN 2.6 1 - 4.8 g/dL [facility] A/G Ratio 1.69 1.00 - 4.80 RATIO [facility] Blood 08/24/2017 10:0 6 AM EDT 08/24/2017 10:47 AM EDT Da Wisdom MD LAB BLOOD ORDERABL ES Final Result Performing Organization Address City/[facility]/ZIP Co de Phone Number [address] [address] documented in this encounter Visit Diagnoses Diagnosis Acute alcoholism- Primary Acute alcoholic intoxication, unspecified drinking behavior documented in this encounter Additional Health Concerns Infection Onset Date Last Indicated Resolved Time CoV-Risk 04/12/2020 04/12/2020 04/26/2020 2:06 AM EST CoV-Risk 03/06/2022 03/06/2022 03/17/2022 1:24 AM EST documented as of this encounter Care Teams Pile Fabric Knitter Relationship Specialty Start Date End Date Da Licea MD [email or web address] PCP - General Family Medicine 04/20/17 4 Da Licea MD [address] [place] [phone] [email or web address] PCP - General Family Medicine 05/22/23 documented as of this encounter Additional Source Comments The information contained in this document represents components of the legal health record. It is not the complete legal health record.[facility]
--- OUTSIDE RECORDS SUMMARY | 2025-01-26 12:45 | XMS_ITS | Encounter Summary ---
Author Organization [facility] Address [address] [facility] [address] [place] [address] Phone Care Team Providers Care Drip Molder Name Role Phone Da Licea MD Primary Care Prov ider Da Licea MD Primary Care Prov ider Encounter Details Date Type Department Care Team (Late st Contact Info) Description 02/06/2022 Procedure Pass [facility], [address] [address] Social History Tobacco Use Types Packs/Day Years [...] Description 02/09/2025 11:20 AM EDT Office Visit [facility] [address] [place] [address] 3rd Floor, [address] [place] [address] Jair Mercer MD 22 [facility], [address] [place] [address] 02/18/2025 10:30 AM EDT Nutrition [facility] General Surgical Care [address] [place] [address] Bri Wheeler LDN [address] [place] [address] 03/24/2025 10:15 AM EST Office Visit [facility] General Surgical Care 15 [place] [address] Chhaya Espana, HOIST OPERATOR 15 [facility], 2nd [place] [address] 03/30/2025 3:00 PM EST Office Visit [facility], Allergy and Critical Care Medicine 10 [place] [address] Luis Moore MD 30 [place] [address] 03/31/2025 2:00 PM EST Office Visit [facility] 22 [facility] 3rd Floor, [address] [place] [address] Jeyson Fagan MD 22 [facility], [facility] 301 [place] [address] 06/09/2025 9:10 AM EST Office Visit [facility] Rheumatology [address] [place] [address] Nury Jackson MD, MPH 22 [facility], [address] [place] [address] documented as of this encounter Visit Diagnoses Not on filedocumented in this encounter Additional Health Concerns Infection Onset Date Last Indicated Resolved Time CoV-Risk 03/06/2022 03/06/2022 03/17/2022 1:24 AM EST documented as of this encounter Care Teams Drip Molder Relationship Specialty Start Date End Date Da Licea MD [email or web address] PCP - General Family Medicine 04/20/17 4 Da Licea MD 238 [place] [address] [email or web address] PCP - General Family Medicine 05/22/23 documented as of this encounter Additional Source Comments The information contained in this document represents components of the legal health record. It is not the complete legal health record.[facility]
== END 2025-01-26 11:27 | disposition home or self-care (01) ==
LOC: HO.HSMS 10:28
PROVIDERS: PCP Family Medicine; Visit Provider Physician Assistant Medical
DX: G47.33 Obstructive sleep apnea (adult) (pediatric) (principal); R06.83 Snoring; R53.83 Other fatigue; G47.9 Sleep disorder, unspecified
CPT/HCPCS: 99214

== ENCOUNTER → 2025-01-26 10:28 | Outpatient (BNVA) | payer OTHER, SELFPAY | PROVIDERS: PCP Family Medicine; Visit Provider Physician Assistant Medical | DX: G47.33 Obstructive sleep apnea (adult) (pediatric) (principal); E66.01 Morbid (severe) obesity due to excess calories; R06.83 Snoring; R53.83 Other fatigue; G47.9 Sleep disorder, unspecified; E55.9 Vitamin D deficiency, unspecified; Z99.89 Dependence on other enabling machines and devices | CPT/HCPCS: 99212 ==